=== PATIENT | female | born 1980 | race African-American/Black ===

== ENCOUNTER 2021-09-27 20:37 | Emergency (ER) | payer SELFPAY ==
[2021-09-27] MEDS ORDERED: diphenhydrAMINE 50 MG/ML VIAL ONE (21:40)
[2021-09-27] MEDS ORDERED: Acetaminophen 500 MG TAB ONE (21:41)
[2021-09-27] MEDS ORDERED: Metoclopramide HCl 10 MG/2 ML VIAL ONE (21:41)
== END 2021-09-28 00:34 | disposition home or self-care (01) ==
LOC: CSHERS 20:37
DX: E11.65 Type 2 diabetes mellitus with hyperglycemia (principal)
CPT/HCPCS: 36416; 96361; 96365; 96375; J1200; J2765

== ENCOUNTER 2025-04-05 12:33 | Emergency (ER) | payer MEDICAID, SELFPAY ==
[2025-04-05] MEDS ORDERED: Proparacaine 0.5% Opth 15 ML BOT ONE (13:12)
[2025-04-05] MEDS ORDERED: Fluorescein Opthalmic Strip ONE (13:12)
[2025-04-05 13:26] LABS: #Basophils Less than 0.03 10x3/uL (0.0-0.2); #Eosinophils Less than 0.03 10x3/uL (0.0-0.5); #Monocytes 0.36 10x3/uL (0.0-1.1); #Neutrophils 6.85 10x3/uL (1.5-8.4); %Basophils 0.1 % (0.0-2.0); %Eosinophils 0.1 % (0.0-6.0); %Lymphocytes 16.1 % (18.0-47.0); %Monocytes 4.2 % (0.0-10.0); %Neutrophils 79.3 % (40.0-75.0); Hematocrit 37.6 % (34.9-44.5); Hemoglobin 12.4 g/dL (12.0-15.5); Mean Corpuscular Hemoglobin 28.6 pg (27.0-33.0); Mean Corpuscular Volume 86.6 fL (81.6-98.3); Platelet Count 339 10x3/uL (150-450); Red Blood Cell (RBC) Count 4.34 10x6/uL (3.90-5.03); White Blood Cell (WBC) Count 8.64 10x3/uL (3.5-10.5)
[2025-04-05 13:43] LABS: ALT (SGPT) 24 U/L (Less than 34); AST (SGOT) 16 U/L (11-34); Albumin 3.3 g/dL (3.1-4.5); Alkaline Phosphatase 112 U/L (40-110); Anion Gap 15 mmol/L (10-20); BUN (Urea Nitrogen) 19 mg/dL (7.0-18.7); Bilirubin, Total 0.5 mg/dL (0.3-1.2); Calc. Creatinine Clearance 0 mL/min (70-130); Calcium 9.7 mg/dL (7.8-10.44); Carbon Dioxide 22 mmol/L (22-29); Chloride 99 mmol/L (98-107); Globulin 4.5 g/dL (2.4-3.5); Glucose 384 mg/dL (70-105); Lipase 12 U/L (8-78); Potassium 5.1 mmol/L (3.5-5.1); Sodium 131 mmol/L (136-145)
[2025-04-05] MEDS ORDERED: Ketorolac Tromethamine 30 MG (1 mL) VIAL ONE (14:35)
[2025-04-05 15:01] LABS: Actual Bicarbonate (HCO3v) 22.4 mEq/L (22-28); Analyzer IN Cardio CS ER; Base Excess -3.6 mEq/L (-2 - +2); Calcium, Ionized (venous) 1.17 mmol/L (1.16-1.32); Chloride (VBG) 98 mmol/L (98-106); Hematocrit-VBG 41 % (36.0-47.0); Hemoglobin (Hb) 14.0 g/dL (11.7-16.0); Potassium (VBG) 5.26 mmol/L (3.70-5.30); Puncture Site Other Site; RapidComm Collect By LAB; Sodium 134 mmol/L (133-146)
[2025-04-05 15:10] LABS: Glucose, Urine (Dipstick) >=1000 mg/dL (Negative); Leukocyte 500 (Negative); Protein, Urine (Dipstick) 100 mg/dl (Neg-Trace); Specific Gravity, Urine 1.015 (1.005-1.030)
[2025-04-05 15:40] LABS: Bacteria/HPF 4+ HPF (None Seen)
[2025-04-05 15:41] LABS: CAUTI Indications for Culture Dysuria,urgency,freq; RBC/HPF 0-3 HPF (0-3); Urine Culture Reflex No No; WBC/HPF 0-3 HPF (0-3)
== END 2025-04-05 16:01 | disposition home or self-care (01) ==
LOC: CSHERS 12:33
DX: H57.12 Ocular pain, left eye (principal); E11.65 Type 2 diabetes mellitus with hyperglycemia; I10 Essential (primary) hypertension; F17.210 Nicotine dependence, cigarettes, uncomplicated; Z55.6 Problems related to health literacy
CPT/HCPCS: 36416; 80053; 81001; 82010; 82805; 83690; 85025; 96374; J1885